=== PATIENT | female | born 1950 | race Caucasian/White ===

== ENCOUNTER 2025-05-26 14:02 | Emergency (ER) | payer MEDICARE, MEDICAID ==
[~2025-05-26] VITALS: Ht 154.9 cm; Wt 59.0 kg
[2025-05-26 14:14] VITALS: O2SAT 100
[2025-05-26] MEDS: KETOROLAC 15MG/ML VIAL IM ONE (16:54)
[2025-05-26 20:27] VITALS: BP 120/44; PULSE 54; RESP 16; TEMP 37; O2SAT 99
== END 2025-05-26 20:44 | disposition home or self-care (01) ==
LOC: ER 14:02
DX: S09.90XA Unspecified injury of head, initial encounter (principal); M79.18 Myalgia, other site; M81.0 Age-related osteoporosis without current pathological fracture; I10 Essential (primary) hypertension; Z90.710 Acquired absence of both cervix and uterus; Z90.49 Acquired absence of other specified parts of digestive tract; W01.0XXA Fall on same level from slipping, tripping and stumbling without subsequent striking against object, initial encounter; Y93.89 Activity, other specified; Y92.009 Unspecified place in unspecified non-institutional (private) residence as the place of occurrence of the external cause; Y99.8 Other external cause status
CPT/HCPCS: 99285; 70450; 72125; 71250; 74176; 96372; J1885